=== PATIENT | male | born 2000 | race Asian ===

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

== ENCOUNTER 2020-01-26 23:12 | Outpatient (CLI) | payer BC | END 2020-01-26 23:13 | disposition critical access hospital (66) | LOC: EMS 23:12 | PROVIDERS: ATTEND Surgery | DX: M79.89 Other specified soft tissue disorders (principal); R39.89 Other symptoms and signs involving the genitourinary system; F41.9 Anxiety disorder, unspecified | CPT/HCPCS: A0425; A0429 ==

== ENCOUNTER 2020-01-26 23:31 | Emergency (ER) | payer BC, MEDICAID ==
[2020-01-27 00:02] VITALS: BP 158/107
--- NOTE | 2020-01-27 00:59 | ED Physician Documentation ---
History of Present Illness - Stated complaint Stated Complaint: ANXIETY - Chief complaint Chief Complaint: General - History obtained from History obtained from: Patient - History of Present Illness Timing: Today Pain level now: 0 Improved by: no apparent ameliorating factors, although symptoms have improved significantly while awaiting ED evaluation Worsened by: no exacerbating factors - Additonal information Additional information: COLEA. Patient called 911 due to anxiety after smoking marijuana and taking cough syrup (triple C, taken with intention of getting high). He has used these substances individually in the past but never at the same time. He was anxious and felt as though his right arm was swelling, but by the time of my evaluation of him, he says he feels fine and wants to be discharged. He says the anxiety and perception of RUE swelling were due to being under the influence of the marijuana combined with the triple C (Coricidin cough and cold). Review of Systems Eyes: denies: Loss of vision, Decreased vision Cardiac: denies: Chest pain / pressure Respiratory: denies: Dyspnea GI: denies: Abdominal Pain, Nausea, Vomiting : reports: Unable to Void PD PAST MEDICAL HISTORY - Past Medical History Past Medical History: No GI: None : None - Past Surgical History Past Surgical History: No - Present Medications Home Medications: Ambulatory Orders Medication Instructions Recorded Confirmed No Known Home Medications 01/26/20 01/26/20 - Allergies Allergies/Adverse Reactions: Allergies Allergy/AdvReac Type Severity Reaction Status Date / Time No Known Drug Allergies Allergy Verified 01/26/20 23:38 - Social History Does the pt smoke?: No Smoking Status: Never smoker Does the pt drink ETOH?: No Does the pt have substance abuse?: No - Immunizations Immunizations are current?: Yes - POLST Patient has POLST: No PD ED PE NORMAL - Vitals Vital signs reviewed: Yes - General General: Alert and oriented X 3, No acute distress, Well developed/nourished - HEENT HEENT: PERRL, EOMI - Neck Neck: Supple, no meningeal sign - Cardiac Cardiac: RRR, No murmur - Respiratory Respiratory: No respiratory distress, Clear bilaterally - Abdomen Abdomen: Normal bowel sounds, Soft - Derm Derm: Normal color, Warm and dry - Neuro Neuro: Alert and oriented X 3 Eye Opening: Spontaneous Motor: Obeys Commands Verbal: Oriented GCS Score: 15 Results - Vitals Vitals: Vital Signs - 24 hr 01/26/20 01/27/20 01/27/20 23:36 00:00 00:02 Temperature 37.7 C H Heart Rate 91 81 78 Respiratory 18 18 14 Rate Blood Pressure 114/90 H 151/103 H 158/107 H O2 Saturation 100 98 97 Oxygen O2 Source Room air PD MEDICAL DECISION MAKING - ED course Complexity details: reviewed results, considered differential, d/w patient ED course: patient is AAOx3, conversant and polite on my H+P. He repeatedly asks to be discharged despite having approximately 1,000 cc in bladder on bladder scan associated with strong urge to urinate but inability to do so. He adamantly refuses cath (I explained that it would be a simple in/out catheterization and he could be discharged immediately after the bladder was drained), but he refuses. Signed AMA. I encouraged him to return immediately if he wants to be reevaluated Departure - Departure Disposition: 07 Against Medical Advice Clinical Impression: Urinary retention Condition: Good Instructions: ED Retention Urinary Male Comments: As we discussed, you have an unusually distended (full) bladder, and I recommend that we temporarily insert a catheter into your bladder to drain the urine; you have refused this, as is your right, but if the bladder continues to distend, it can lead to rupture of the bladder and/or kidney problems. Please return immediately to the emergency department if you change your mind or need to be reevaluated for any reason. Discharge Date/Time: 01/27/20 01:19
== END 2020-01-27 01:19 | disposition left against medical advice (07) ==
LOC: EDUNIT# → ED 23:31
DX: F12.980 Cannabis use, unspecified with anxiety disorder (principal); R33.9 Retention of urine, unspecified; Z53.20 Procedure and treatment not carried out because of patient's decision for unspecified reasons
CPT/HCPCS: 99282; 99283